=== PATIENT | male | born 1970 | race Hispanic/Latino ===

== ENCOUNTER 2019-07-13 17:28 | Emergency (ER) | payer OTHER ==
[2019-07-13 18:10] VITALS: BP 110/81
--- NOTE | 2019-07-13 18:41 | Emergency Department Report ---
Blank Doc - Documentation Documentation: 48-year-old male that presents with fever, body aches, and URI symptoms. Taken Tylenol before ED. This initial assessment/diagnostic orders/clinical plan/treatment(s) is/are subject to change based on patient's health status, clinical progression and re- assessment by fellow clinical providers in the ED. Further treatment and workup at subsequent clinical providers discretion. Patient/guardians urged not to elope from the ED as their condition may be serious if not clinically assessed and managed. Initial orders include: 1- Patient sent to [facility] for further evaluation and treatment 2- CXR
--- NOTE | 2019-07-13 19:26 | XRay Report ---
CHEST 2 VIEWS INDICATION / CLINICAL INFORMATION: cough. COMPARISON: None available. FINDINGS: SUPPORT DEVICES: None. HEART / MEDIASTINUM: No significant abnormality. LUNGS / PLEURA: No significant pulmonary or pleural abnormality. No pneumothorax. ADDITIONAL FINDINGS: No significant additional findings. IMPRESSION: 1. No acute findings. Signer Name: Felix Hill MD Signed: 07/13/2019 7:22 PM Workstation Name: [id number]
[2019-07-13] MEDS ORDERED: IBUPROFEN 600 MG TAB PO ONE ×2 (19:55→19:57)
--- NOTE | 2019-07-13 19:55 | Emergency Department Report ---
Minor Respiratory - HPI Chief Complaint: Upper Respiratory Infection Stated Complaint: FLU SX Time Seen by Provider: 07/13/19 18:40 Duration: Today Pain Location: Facial Minor Respiratory: Yes Able to Tolerate Fluids, Yes Cough, Yes Fever, No Sore Throat, No Ear Pain, No Sick Contacts, No Hemoptysis, No Chest Pain, No Shortness of Breath Other History: 48-year-old male presents to the emergency room for 24 hour history of fever body aches and cough. Patient reports he last took Tylenol about 4 hours ago. Patient did not get his flu vaccination. Patient does have a past medical history of acid reflux anxiety nerve pain. Patient is currently being evaluated at [facility]. ED Review of Systems ROS: Stated complaint: FLU SX Other details as noted in HPI Comment: All other systems reviewed and negative ED Past Medical Hx - Past Medical History Additional medical history: ulcer, diverticulitis - Surgical History Additional Surgical History: hernia - Social History Smoking Status: Current Some Day Smoker Substance Use Type: None - Medications Home Medications: Home Medications Medication Instructions Recorded Confirmed Last Taken Type Ibuprofen [Motrin 600 MG tab] 600 mg PO Q8H PRN #21 tablet 07/13/19 Unknown Rx Oseltamivir [Tamiflu] 75 mg PO BID 5 Days #10 cap 07/13/19 Unknown Rx Minor Respiratory Exam - Exam General: Vital signs noted. No distress. Alert and acting appropriately. HEENT: Yes Moist Mucous Membranes, No Pharyngeal Erythema, No Pharyngeal Exudates, No Rhinorrhea, No Conjuctival Injection, No Frontal Tenderness, No Maxillary Tenderness Neck: Yes Supple, No Adenopathy Lungs: Yes Good Air Exchange, No Wheezes, No Ronchi, No Stridor, No Cough, No Labored Respirations, No Retractions, No Use of Accessory Muscles, No Other Abnormal Lung Sounds Heart: Yes Regular, No Murmur Abdomen: Yes Normal Bowel Sounds, No Tenderness, No Peritoneal Signs Skin: No Rash, No Edema Neurologic: Alert and oriented, no deficits. Musculoskeletal: Unremarkable. ED Course Vital Signs 07/13/19 07/13/19 18:08 18:40 Temperature 99.0 F 99 F Pulse Rate 97 H 91 H Respiratory 19 16 Rate Blood Pressure 110/81 110/81 O2 Sat by Pulse 91 94 Oximetry ED Medical Decision Making - Radiology Data Radiology results: report reviewed Patient: JIGAR CEDENO MR#: [id number] : 1970 Acct:[id number] Age/Sex: 48 / M ADM Date: 07/13/19 Loc: ED Attending Dr: Ordering Physician: ELSA ESPINOZA NP Date of Service: 07/13/19 Procedure(s): XR chest routine 2V Accession Number(s): [id number] cc: ELSA ESPINOZA NP Fluoro Time In Minutes: CHEST 2 VIEWS INDICATION / CLINICAL INFORMATION: cough. COMPARISON: None available. FINDINGS: SUPPORT DEVICES: None. HEART / MEDIASTINUM: No significant abnormality. LUNGS / PLEURA: No significant pulmonary or pleural abnormality. No pneumothorax. ADDITIONAL FINDINGS: No significant additional findings. IMPRESSION: 1. No acute findings. Signer Name: Felix Hill MD Signed: 07/13/2019 7:22 PM Workstation Name: [id number] Transcribed By: Dictated By: Felix Hill MD Electronically Authenticated By: Felix Hill MD Signed Date/Time: 07/13/191921 DD/ 21 TD/TT: - Medical Decision Making 48-year-old male presents to the emergency room for 24 hour history of fever body aches and cough. Patient reports he last took Tylenol about 4 hours ago. Patient did not get his flu vaccination. Patient does have a past medical history of acid reflux anxiety nerve pain. Patient is currently being evaluated at [facility]. Chest x-ray is negative for any acute findings. Patient be treated for viral syndrome patient was placed on Tamiflu ibuprofen recommendation for [id number] Robitussin. Critical care attestation.: If time is entered above; I have spent that time in minutes in the direct care of this critically ill patient, excluding procedure time. ED Disposition Clinical Impression: Flu-like symptoms Disposition: DC-01 TO HOME OR SELFCARE Is pt being admited?: No Does the pt Need Aspirin: No Condition: Stable Instructions: Viral Syndrome (ED) Additional Instructions: Treatment Tamiflu as prescribed. Ibuprofen as needed for body aches and fever. You can take [id number] Robitussin for cough. Increase her fluid intake of that nature as tolerated. Follow-up with her primary care provider if his symptoms persist or gets worse Prescriptions: Ibuprofen [Motrin 600 MG tab] 600 mg PO Q8H PRN #21 tablet PRN Reason: Pain , Severe (7-10) Oseltamivir [Tamiflu] 75 mg PO BID 5 Days #10 cap Referrals: Your,Primary Care [Other] - 3-5 Days
== END 2019-07-13 20:04 | disposition home or self-care (01) ==
LOC: ED 17:28
DX: J11.1 Influenza due to unidentified influenza virus with other respiratory manifestations (principal); F17.200 Nicotine dependence, unspecified, uncomplicated
CPT/HCPCS: 71046; 99283